=== PATIENT | male | born 1965 | race Caucasian/White ===

== ENCOUNTER 2024-12-29 09:21 | Observation (INO) ==
--- NOTE | 2024-12-23 13:02 | Anesthesiology Consultation ---
Date of Service December 23, 2024 Assessment & Plan (1) Encounter for pre-operative examination: Chart Review Chart Review: Acceptable Risk for Surgery (pending DOS BMP ) and Patient NOT seen in Pre Admission Testing - Check BMP DOS (BMP not done preoperatively per surgeon's office- can order for DOS) -Infectious Disease screening: Per PAT nursing assessment on 12/23/24. No known infectious disease contacts in past 10 days or current infectious disease symptoms. No recent travel outside the country. History Surgery Operation Date: 12/29/24 10:50 Proposed Procedures p Robotic Assisted Laparoscopic Radical Retropubic Prostatectomy, Possible Open, Possible Pelvic Lymph Node Dissection - Tye Gonzalez, DO Height/Weight Height: 6 ft Weight: 81.647 kg Allergies Allergy/AdvReac Type Severity Reaction Status Date / Time No Known Allergies Allergy Verified 12/23/24 12:22 Medications Home Medications Medication Instructions Recorded Confirmed Last Taken aspirin 81 mg tablet,delayed 81 mg PO HS 07/27/24 12/23/24 Unknown release (Adult Aspirin Regimen) allopurinol 100 mg tablet 100 mg PO HS 12/23/24 12/23/24 Unknown fish oil-dha-epa 1,200 mg-144 1 cap PO HS 12/23/24 12/23/24 Unknown mg-216 mg capsule Past Medical History Medical History Gout History of COVID-19 ~2021: severe flu symptoms, treated with paxlovid - no hospitalization. resolved. Hx of renal calculi no surgical intervention Prostate cancer dx June 2024. Past Family History Family History Father No problems noted. Mother Sudden MVA Other No family history of adverse response to anesthesia Past Surgical History Surgical History H/O prostate biopsy Social History Smoking Status: Never smoker Do You Dip or Chew Tobacco: No Hx Alcohol Use: Yes alcohol intake frequency: holidays/special occasions only Hx Substance Use: No substance use type: does not use Testing Laboratory Results 12/16/24= WBC: 5.4 H/H: 14.1/41.2 PLATELETS: 210 URINE CULTURE: <10,000 CFU/ml Mixed vanda (multiple species present) Electrocardiogram Date: 12/16/24 SR at 67bpm Incomplete RBBB LAFB Chest X-Ray Date: 12/16/24 Findings: + NAD
[2024-12-29] MEDS: LR 15ML/HR IV SCH (09:55)
[2024-12-29 09:56] LABS: Anion Gap 6.0 (3-11); Blood Urea Nitrogen 15.0 mg/dl (6-23); Calcium 9.5 mg/dl (8.6-10.3); Carbon Dioxide 29.0 mmol/L (21-32); Chloride 105.0 mmol/L (98-107); Creatinine Clr Calc Pharmacy 95.7 ml/min; Glucose 103.0 mg/dl (70-99(Fasting)); Potassium 3.8 mmol/L (3.5-5.1); Sodium 140.0 mmol/L (136-145)
[2024-12-29] MEDS ORDERED: HYDROmorphone INJ 2 MG/ML SYR/VIAL IV PRN (11:12)
[2024-12-29] MEDS ORDERED: ATROPINE SULFATE 0.1 MG/ML 10ML SYR IV PRN (11:12)
--- NOTE | 2024-12-29 11:49 | History & Physical Bridge Note ---
Date of Service December 29, 2024 History & Physical Bridge Note I have examined the patient, reviewed the History & Physical and in the interval since the performance of the History & Physical I have noted the following changes of clinical significance: no changes noted
[2024-12-29] MEDS ORDERED: KETAMINE HCL 10MG/ML SYR ONE (12:18)
[2024-12-29] MEDS ORDERED: MIDAZOLAM HCL 1 MG/ML 2ML VIAL ONE (12:18)
[2024-12-29] MEDS ORDERED: PROPOFOL IV EMULSION 10 MG/ML 20 ML VIAL IV ONE (13:02)
[2024-12-29] MEDS ORDERED: LIDOCAINE 2% 2 ML VIAL/AMP(20MG/ML) INFIL ONE (13:02)
[2024-12-29] MEDS ORDERED: ROCURONIUM BROMIDE 10 MG/ML 5 ML VIAL IV ONE (13:02)
[2024-12-29] MEDS ORDERED: DEXAMETHASONE SOD INJ 4 MG/ML VIAL ONE (13:03)
[2024-12-29] MEDS ORDERED: ONDANSETRON INJ 2 MG/ML 2 ML VIAL ONE (13:03)
[2024-12-29] MEDS ORDERED: HYDROmorphone INJ 2 MG/ML SYR/VIAL ONE (13:03)
[2024-12-29] MEDS: SURGICEL ABSORB HEMOSTAT 2IN X 14IN TOP ONE (13:11)
[2024-12-29] MEDS ORDERED: SUGAMMADEX SODIUM 200 MG/2 ML VIAL IV ONE (14:51)
[2024-12-29] MEDS: FLOSEAL HEMOSTATIC MATRIX 10ML TOP ONE (14:59)
[2024-12-29] MEDS: BUPIVACAINE 0.5 % 5 MG/1 ML MPF 30ML VIAL ONE (15:02)
--- NOTE | 2024-12-29 15:29 | Operative Report ---
PG Post Operative Report Pre & Post Diagnosis Operation Date: 12/29/24 10:50 Pre-Op Diagnosis: Malignant Neoplasm of Prostate / Elevated Prostate Specific Antigen Post-Op Diagnosis: Malignant Neoplasm of Prostate / Elevated Prostate Specific Antigen I identified the patient and participated in the time-out.: Yes Procedure Operation Date: 12/29/24 10:50 Actual Procedures p Robotic Assisted Laparoscopic Radical Retropubic Prostatectomy, Pelvic Lymph Node Dissection, and lysis of adhesions (Not Applicable) - Tye Gonzalez, Surgeon Tye Gonzalez, II, DO Privacy Officer Efrem SHARPE Estimated Blood Loss 50 Findings Consistent with Post-Op Diagnosis Significant adhesions of sigmoid colon. Likely diverticular disease. Large prostate with large median lobe. Specimens Prostate and Seminal Vesicle Left Pelvic Lymph Nodes Right Pelvic Lymph Nodes. Drains Montano catheter. Anesthesia Type General Complications none Disposition Disposition: Recovery Room Indications Patient with Prostate Cancer. Risk and benefits were discussed at length. Patient elected to undergo robotic assisted laparoscopic Radical Prostatectomy. Description of Procedure The patient was brought to the operative suite and placed under general endotracheal intubation anesthesia in the supine position. The patient was tr ansferred to the dorsal lithotomy position. At this point, the patient prepped and draped in the usual sterile fashion and a timeout was completed. Preoperative antibiotics of Ancef 2 grams had been given. SIL's and SCD's were placed on the patient's lower extremities. A catheter was placed using sterile technique. With the time out completed the patient was placed into Trendelenburg and the skin at the umbilicus was anesthetized. A small incision was made superior to the umbilicus. A Varess Needle was placed and confirmed to be in the abdominal cavity. Water drop test passed. The Abdominal cavity was insufflated to 15 mmHG. The camera port was then placed. A laparoscopic camera was placed into the port and the abdominal cavity inspected. No concerning features were noted. At this point, the skin was marked for port placement and 8mm working ports were placed. The skin was anesthetized down to fascia and an approx 1cm incision was made to place the 3 x 8mm ports. A 12 mm and 5 mm assistant offset press operator ports were also placed in similar fashion under direct visualization. The patient was transferred into steep Trendelenburg position and the legs lowered. The robot was positioned and docked. The camera was placed and all trocars were positioned under direct visualization. Efrem SHARPE was integral in port placement, camera utilization, and docking procedure. She remained in sterile attire and then proceeded to assist the remainder of the case. At this point, I transitioned to the robotic console. At this point, the sigmoid colon was mobilized superiorly and the pelvis assessed. Adhesions were freed to allow mobilization. Patient had signs of likely chronic diverticular disease. Had numerous adhesions of the sigmoid colon. Extensive lysis with greater than 20 minutes for lysis and clearing of adhesions and mobilization of the sigmoid colon. Once it was mobilized the colon was able to be retracted. The peritoneum in the midline was opened between rectum and bladder and the vas deferens and seminal vesicles exposed. These were dissected with blunt technique. The vas was clipped and cut and mobilized. Cautery was used to assist dissection avoiding the tissue posteriorly near the rectum. The tissues lateral to the seminal vesicles were clipped with a hemolock and all bleeding controlled. This was taken as inferior as possible from this position. The medial umbilical ligaments were then identified and the peritoneum directly lateral on the right followed by the left was opened. The tissues were bluntly dissected to free the bladder's lateral attachments. This was taken down to the pubic bone and exposed the endopelvic fascia bilaterally. The medial ligaments were cut and the bladder dropped. The tissues was dissected anterior to the pr ostate. The endopelvic fascia on each side was then opened and the lateral edges of the prostate dissected. The Dorsal venous complex of the prostate was dissected and assessed. A 2-0 PDS suture was used to ligate the vessels. A suspension stitch was used and clipped. Electrocautery was used to cut the anterior attachments, the puboprostatic ligaments, and venous tissues. The right and left pelvic lymph tissue was identified in relation to the iliac vessels. Distal dissection was taken to the Node of [place]. Inferiorly the obtorator vessels and nerve were identified. Lymphatic tissue within the surround fat tissue was dissected. This packet of tissues were sent for pathologic analysis and lymph node assessment. This was done for each separate side. Hemostatic agent was placed on the exposed vessels. The montano was manipulated to better visual the bladder neck and dissection was taken using electrocautery. The bladder neck was opened and dissected from the prostate. Patient was discovered to have a large median lobe which was projecting into the bladder. The UO were identified and dissection taken in a direction to avoid each side. The vas stump and seminal vesicles were exposed and used to assist in traction to dissect. The prostatic pedicles were better exposed. The posterior prostate was dissected. An attempt was made to limit cautery and utilize cold dissection of the lateral posterior prostate to attempt preservation of the neurovascular bundle bilaterally. Hemolock clips were utilized to clip the prostatic pedicle bilaterally. The dissection was taken to the apex of the prostate. The anterior prostate was released and the urethra exposed. Cold cutting was used to open the anterior portion and expose the catheter. This was removed and the urethra incised. The prostate was further freed and grasped and removed from the field. The entire dissection bed was inspected.Hemostatic agent was placed in the region. No areas of injury or bleeding was noted. Care was taken to examine the perirectal tissues. A probe was placed and no injuries or other issues were observed. The bladder neck and urethra were then approximated with a running barbed suture starting at the 5 o'clock position and moving to the 12 o'clock on each side. This was secured at the anterior portion. A leak test was completed without any evidence of issues. The entire dissection space was inspected one final time. No bleeding or injuries or areas of concern were noted. No tumor or other concerning features were noted. At this point, the robot was undocked and moved away from the patient. The patient was taken out of Trendelenberg. The port sites were all assessed laparoscopically. The endoscopic bag was moved into the midline port. The 12 mm port site was closed with the Lupillo Bee device. The other ports were assessed and no issues observed. The umbilical incision was opened further exposing fascia which was then opened in order to removed the prostate in the bag. The prostate was removed. A running PDS suture was used to close fascia. The skin at each site was closed with a stapling device. The area was cleaned and bandages placed on each incision. The patient was cleaned and bandaged, aroused from anesthesia, and transferred to the pacu in stable condition having tolerated the procedure well with no complications. I was present and participated in all aspects of the procedure. Efrem SHARPE was critical in the portions as mentioned above. Will plan to observe postoperatively and monitor. Montano to be remain in place until followup. Will plan for staple removal in approximately a week with pathology likely at the same time I attest to the content of the Intraoperative Record and any orders documented therein. Any exceptions are noted below.
[2024-12-29] MEDS ORDERED: PHENYLEPHRINE 100MCG/ML 5ML SYR ONE (15:38)
[2024-12-29] MEDS ORDERED: ePHEDrine sulfate 50 MG/5 ML SYR ONE (15:38)
--- NOTE | 2024-12-29 16:16 | Anesthesiology Progress Note ---
Date of Service December 29, 2024 Anesthesia Post Procedure Vital Signs Vital Signs: Temp Pulse Pulse Resp BP BP Pulse Ox 12/29/24 16:10 74 17 119/79 96 12/29/24 16:00 36.5 C 72 16 125/76 97 12/29/24 15:50 77 16 129/78 99 12/29/24 15:40 73 16 117/70 100 12/29/24 15:32 36.7 C 68 14 120/73 99 12/29/24 09:43 36.6 C 65 20 141/93 H 98 O2 Del Method O2 Flow Rate 12/29/24 16:10 Room Air 12/29/24 16:00 Room Air 12/29/24 15:50 Oxymask 2 12/29/24 15:40 Oxymask 9 12/29/24 15:32 Oxymask 9 12/29/24 09:43 Room Air Transfer of Care Handoff Completed per policy Notes Mental Status: alert / awake / arousable Patient Amnestic to Procedure: Yes Nausea / Vomiting: adequately controlled Pain: adequately controlled Airway Patency, RR, SpO2: stable & adequate BP & HR: stable & adequate Hydration State: stable & adequate Anesthetic Complications: no major complications apparent
[2024-12-29] MEDS ORDERED: ACETAMINOPHEN 325 MG TAB PO PRN (16:20)
[2024-12-29] MEDS ORDERED: MoRPHine SULFATE 2 MG/ML CARP IV PRN (16:20)
[2024-12-29] MEDS ORDERED: ONDANSETRON INJ 2 MG/ML 2 ML VIAL IV PRN (16:20)
[2024-12-29 16:21] LABS: Hematocrit (blood only) 37.1 % (42.0-52.0); Hemoglobin 12.7 g/dl (14.0-18.0); Mean Corpuscular Hemoglobin 30.9 pg (25.0-34.0); Mean Corpuscular Volume 90.3 fL (80.0-100.0); Platelet Count 155 K/uL (130-400); RDW Standard Deviation 39.3 fL (36.4-46.3); Red Blood Count 4.11 M/uL (4.70-6.10); White Blood Count 16.84 K/ul (4.8-10.8)
[2024-12-29 16:35] LABS: Anion Gap 5.0 (3-11); Blood Urea Nitrogen 15.0 mg/dl (6-23); Calcium 8.6 mg/dl (8.6-10.3); Carbon Dioxide 27.0 mmol/L (21-32); Chloride 106.0 mmol/L (98-107); Creatinine Clr Calc Pharmacy 86.0 ml/min; Glucose 154.0 mg/dl (70-99(Fasting)); Potassium 3.6 mmol/L (3.5-5.1); Sodium 138.0 mmol/L (136-145)
[2024-12-29] MEDS: LACTATED RINGER'S 1,000 ML IV SCH (16:37)
[2024-12-29 16:38] LABS: Immature Granulocytes # (auto) 0.13 K/uL (0.01-0.20); Immature Granulocytes % (auto) 0.8 %
[2024-12-29] MEDS: DOCUSATE SODIUM 100 MG CAP PO SCH (21:13)
[2024-12-29] MEDS: HEPARIN SOD 5,000 UNIT/0.5 ML VIAL SQ SCH (21:13)
[2024-12-30 06:56] LABS: Hematocrit (blood only) 33.3 % (42.0-52.0); Hemoglobin 11.8 g/dl (14.0-18.0); Immature Granulocytes # (auto) 0.06 K/uL (0.01-0.20); Immature Granulocytes % (auto) 0.5 %; Mean Corpuscular Hemoglobin 31.9 pg (25.0-34.0); Mean Corpuscular Volume 90.0 fL (80.0-100.0); Platelet Count 155 K/uL (130-400); RDW Standard Deviation 38.7 fL (36.4-46.3); Red Blood Count 3.70 M/uL (4.70-6.10); White Blood Count 12.30 K/ul (4.8-10.8)
[2024-12-30 07:27] VITALS: RESP 18; O2SAT 98
[2024-12-30 07:34] LABS: Anion Gap 7.0 (3-11); Blood Urea Nitrogen 20.0 mg/dl (6-23); Calcium 8.4 mg/dl (8.6-10.3); Carbon Dioxide 25.0 mmol/L (21-32); Chloride 103.0 mmol/L (98-107); Creatinine Clr Calc Pharmacy 85.1 ml/min; Glucose 131.0 mg/dl (70-99(Fasting)); Potassium 4.2 mmol/L (3.5-5.1); Sodium 135.0 mmol/L (136-145)
--- NOTE | 2024-12-30 10:51 | Urology Progress Note ---
Date of Service December 30, 2024 Assessment & Plan (1) Prostate cancer: Plan POD #1 s/p robotic prostatectomy with Dr. Gonzalez Feeling well, progressing as expected Afebrile with stable vitals Labs - WBCs 12.30, Hemoglobin 11.8, Creatinine 1.0 Minimal pain, tolerable with medication Tolerating diet Incisions appropriate OK to advance diet as tolerated Encourage ambulation Continue pain management as needed Maintain Gastelum catheter Will reassess later today for possible discharge home pending patient status Admission and Anticipated Discharge Date Admission Date: December 29, 2024 Subjective Pt seen at bedside this morning. Awake and resting in bed on arrival. No acute distress. Gastelum draining clear yellow urine. Denies f/c/n/v. Tolerating clear liquid diet. Incisions appropriate. Pain is tolerable with medication. Review of Systems Constitutional: as per Subjective / HPI Genitourinary: + as per Subjective / HPI Physical Exam Constitutional: no acute distress Respiratory: no respiratory distress and no labored breathing Gastrointestinal (Abdomen): Minimal tenderness with palpation. Incisions appropriate. Gauze dressing c/d/i. Neurologic: moves all extremities and awake Psychiatric: A+Ox3, euthymic affect Genitourinary: Gastelum draining clear yellow urine Results & Data Vital Signs (Past 12 Hours) Vital Signs Temp Pulse Resp BP BP Pulse Ox O2 Del Method 12/30/24 07:27 36.8 C 70 18 115/64 98 Room Air 12/30/24 04:04 36.4 C L 76 16 112/69 97 Room Air 12/29/24 23:00 36.7 C 77 18 118/69 97 Room Air PG Care Time/CCT Total # of Minutes Spent Total Time Spent with Patient: Total time spent is greater than 50% in coordination of care (as documented) at patient's floor/unit and/or counseling patient: Coding Level of Care Code None Diagnoses Prostate cancer C61
[2024-12-30 11:42] VITALS: BP 109/69; PULSE 100; TEMP 97.7
== END 2024-12-30 14:35 | disposition home or self-care (01) ==
LOC: ASU 09:21 → 3E 15:33 → INTOOBSV 15:33